=== PATIENT | male | born 1995 | race Asian ===

== ENCOUNTER 2019-11-24 11:21 | Emergency (ER) | payer OTHER ==
[~2019-11-24] VITALS: Ht 175.3 cm; Wt 78.0 kg
[2019-11-24] MEDS ORDERED: ONDANSETRON HCL 4MG/2ML INJ IV STA (11:31)
[2019-11-24] MEDS ORDERED: FAMOTIDINE 20MG/2ML VIAL IV STA (11:31)
[2019-11-24] MEDS ORDERED: SODIUM CHLORIDE 0.9% 1,000 ML IV ONE (11:31)
[2019-11-24 12:10] VITALS: BP 125/76
== END 2019-11-24 12:12 | disposition home or self-care (01) ==
LOC: ER 11:21
DX: R19.7 Diarrhea, unspecified (principal); J45.909 Unspecified asthma, uncomplicated
CPT/HCPCS: 99283; J7030; 99281